=== PATIENT | male | born 1995 | race Caucasian/White ===

== ENCOUNTER 2017-12-26 11:27 | Outpatient (CLI) | payer OTHER | END 2017-12-26 11:37 | disposition home or self-care (01) | LOC: LAB 11:27 | DX: R10.9 Unspecified abdominal pain (principal); R12 Heartburn; R30.0 Dysuria ==

== ENCOUNTER 2017-12-26 12:12 | Outpatient (CLI) | payer OTHER | END 2017-12-26 12:30 | disposition home or self-care (01) | LOC: SONOGRAMA 12:12 | DX: R10.9 Unspecified abdominal pain (principal) ==

== ENCOUNTER → 2017-12-26 | Outpatient (CLI) | payer OTHER | END | disposition home or self-care (01) | LOC: PPHC 09:53 | DX: R10.817 Generalized abdominal tenderness (principal) ==

== ENCOUNTER 2018-09-18 10:27 | Emergency (ER) | payer OTHER ==
[~2018-09-18] VITALS: Ht 167.6 cm; Wt 62.6 kg
[2018-09-18] MEDS ORDERED: PROMETHAZINE W473 ML PO ×2 (14:44)
== END 2018-09-18 14:45 | disposition home or self-care (01) ==
LOC: ER 10:27
DX: J45.998 Other asthma (principal); R50.9 Fever, unspecified

== ENCOUNTER 2020-08-02 10:14 | Outpatient (CLI) | payer OTHER ==
[~2020-08-02 10:14] MED LIST: PROMETHAZINE W473 ML PO
== END 2020-08-02 10:30 | disposition home or self-care (01) ==
LOC: SONOGRAMA 10:14
PROVIDERS: ATTEND Specialist
DX: D40.12 Neoplasm of uncertain behavior of left testis (principal); I87.8 Other specified disorders of veins; N45.2 Orchitis

== ENCOUNTER 2020-08-08 14:54 | Outpatient (CLI) | payer OTHER | END 2020-08-08 15:07 | disposition home or self-care (01) | LOC: RAD 14:54 | PROVIDERS: ATTEND General Practice | DX: H93.8X9 Other specified disorders of ear, unspecified ear (principal); R22.0 Localized swelling, mass and lump, head ==

== ENCOUNTER 2020-10-17 15:18 | Emergency (ER) | payer OTHER ==
[~2020-10-17] VITALS: Ht 167.6 cm; Wt 72.1 kg
[2020-10-17] MEDS ORDERED: ANALPRAM HC 2.530 GM RECTAL (17:15)
== END 2020-10-17 17:23 | disposition home or self-care (01) ==
LOC: ER 15:18
DX: K64.8 Other hemorrhoids (principal)

== ENCOUNTER 2020-12-13 23:31 | Emergency (ER) | payer OTHER ==
[~2020-12-13] VITALS: Ht 167.6 cm; Wt 71.2 kg
[~2020-12-13 23:31] MED LIST changes: +ANALPRAM HC 2.530 GM RECTAL
[2020-12-14] MEDS ORDERED: KETO10TA2 PO (01:52)
== END 2020-12-14 01:58 | disposition home or self-care (01) ==
LOC: ER 23:31
DX: R07.89 Other chest pain (principal); M94.0 Chondrocostal junction syndrome [Tietze]

== ENCOUNTER 2021-04-17 13:57 | Outpatient (CLI) | payer OTHER ==
[~2021-04-17 13:57] MED LIST changes: +KETO10TA2 PO
== END 2021-04-17 14:08 | disposition home or self-care (01) ==
LOC: RAD 13:57
PROVIDERS: ATTEND Orthopaedic Surgery
DX: S63.521A Sprain of radiocarpal joint of right wrist, initial encounter (principal); S63.522A Sprain of radiocarpal joint of left wrist, initial encounter; S57.81XA Crushing injury of right forearm, initial encounter; S57.82XA Crushing injury of left forearm, initial encounter

== ENCOUNTER 2021-06-30 12:16 | Outpatient (CLI) | payer OTHER | END 2021-06-30 12:25 | disposition home or self-care (01) | LOC: MRI 12:16 | PROVIDERS: ATTEND Physical Medicine & Rehabilitation | DX: M79.631 Pain in right forearm (principal) | CPT/HCPCS: 73218 ==

== ENCOUNTER 2021-12-18 16:04 | Emergency (ER) | payer OTHER ==
[~2021-12-18] VITALS: Ht 170.2 cm; Wt 76.7 kg
== END 2021-12-18 22:47 | disposition home or self-care (01) ==
LOC: ER 16:04
DX: M54.2 Cervicalgia (principal); R07.89 Other chest pain; I10 Essential (primary) hypertension

== ENCOUNTER 2022-07-13 10:32 | Outpatient (CLI) | payer OTHER | END 2022-07-13 10:47 | disposition home or self-care (01) | LOC: MRI 10:32 | DX: M54.2 Cervicalgia (principal); M79.621 Pain in right upper arm | CPT/HCPCS: 72142 ==

== ENCOUNTER 2023-02-15 09:56 | Emergency (ER) | payer OTHER ==
[~2023-02-15] VITALS: Ht 167.6 cm; Wt 81.6 kg
== END 2023-02-15 11:31 | disposition home or self-care (01) ==
LOC: ER 09:56
DX: R07.89 Other chest pain (principal)